=== PATIENT | female | born 2000 | race Caucasian/White ===

== ENCOUNTER 2021-06-26 09:49 | Emergency (ER) | payer OTHER ==
[2021-06-26 11:44] LABS: HEMOGLOBIN 11.4 gm/dl (12.3-15.3); RED BLOOD COUNT 4.04 M/UL (4.00-5.10); WHITE BLOOD COUNT 9.3 K/UL (4.5-11.0)
[2021-06-26 12:10] LABS: BUN/CREATININE RATIO 11 (0-10)
[2021-06-26] MEDS ORDERED: PEPCID40 MG PO (12:40)
[2021-06-26] MEDS ORDERED: ZOFRAN ODT 4 MG4 MG SL (12:40)
== END 2021-06-26 13:05 | disposition home or self-care (01) ==
LOC: ER1 09:49
DX: O99.283 Endocrine, nutritional and metabolic diseases complicating pregnancy, third trimester (principal); E87.6 Hypokalemia; O99.891 Other specified diseases and conditions complicating pregnancy; R07.89 Other chest pain; R12 Heartburn
CPT/HCPCS: 80053; 81001; 82550; 82553; 83605; 83874; 84484; 85025; 93005; 96374; 99285